=== PATIENT | male | born 1975 | race Caucasian/White ===

== ENCOUNTER 2020-08-27 06:36 | Day surgery (SDC) | payer OTHER ==
[~2020-08-27] VITALS: Ht 193 cm; Wt 117.2 kg
[2020-08-27] MEDS ORDERED: LIDOCAINE 2% 30 ML JELLY TP ONE (06:37)
[2020-08-27] MEDS ORDERED: BENZOCAINE 20% 50 MCG/SPRAY 57 GM TP ONE (06:37)
[2020-08-27] MEDS ORDERED: LIDOCAINE 4% 50 ML SOLUTION TP ONE (06:37)
[2020-08-27] MEDS ORDERED: ALBUTEROL SULFATE 2.5 MG/0.5 ML NEB SOLUTION NEB ONE (06:37)
[2020-08-27] MEDS ORDERED: SODIUM CHLORIDE 0.9% 1,000 ML IV ONE (07:00)
[2020-08-27 07:03] LABS: COVID AG,FIA SOURCE NASOPHARYNGEAL
[2020-08-27] MEDS ORDERED: FentaNYL CITRATE PF 100 MCG/2 ML VIAL ONE (07:29)
[2020-08-27] MEDS ORDERED: MIDAZOLAM HCL 2 MG/2 ML VIAL ONE (07:29)
[2020-08-27 08:27] LABS: GLUCOMETER DEV NAME(LOC) SDS.; GLUCOSE,POINT OF CARE 97 MG/DL (70-110)
[2020-08-27] MEDS ORDERED: MethylPREDNISolone SOD SUCC 125 MG/2 ML VIAL IVP ONE (09:15)
[2020-08-27] MEDS ORDERED: OXYGEN THERAPY IH SCH (20:00)
== END 2020-08-27 11:40 | disposition home or self-care (01) ==
LOC: SURGERY 06:36
PROVIDERS: ATTEND Internal Medicine Critical Care Medicine
DX: J38.4 Edema of larynx (principal); L92.8 Other granulomatous disorders of the skin and subcutaneous tissue; I10 Essential (primary) hypertension; K21.9 Gastro-esophageal reflux disease without esophagitis; G89.29 Other chronic pain; F41.9 Anxiety disorder, unspecified; Z79.899 Other long term (current) drug therapy; Z20.822 Contact with and (suspected) exposure to COVID-19; Z98.890 Other specified postprocedural states
CPT/HCPCS: 31623; 31624; 71045; 82962; 87015; 87070; 87077; 87101; 87186; 87205; 87206; 87220; 87426; 88108; 88312; C9803; J2250; J2930; J3010; J7030; J7613; Z7610